=== PATIENT | female | born 1970 | race Caucasian/White ===

== ENCOUNTER 2019-03-04 11:23 | Emergency (ER) | payer OTHER ==
[~2019-03-04] VITALS: Ht 152.4 cm; Wt 59.0 kg
[2019-03-04 11:45] LABS: ABSOLUTE EOSINOPHILS 0.6 thou/uL (0.0-0.7); ABSOLUTE LYMPHOCYTES 3.2 thou/uL (0.8-5.3); ABSOLUTE NEUTROPHILS 6.1 thou/uL (1.6-8.1); BASOPHILS 0.3 %; EOSINOPHILS 5.6 %; HEMATOCRIT 46.2 % (37.0-47.0); HEMOGLOBIN 15.4 gm/dL (12.0-15.0); LYMPHOCYTES 29.2 %; MCH 31.2 pg (26.0-34.0); MCHC 33.3 g/dL (28.0-37.0); MCV 93.6 fL (80.0-100.0); MONOCYTES 9.5 %; MPV 8.5 fl. (7.2-11.1); NUCLEATED RBCS 0 /100WBC; PLATELET COUNT* 419 thou/uL (150-400); POLYS 55.4 %; RBC 4.93 mil/uL (4.20-5.00); RDW-CV 13.9 % (10.5-14.5)
[2019-03-04] MEDS ORDERED: CLARITIN10 MG PO (11:45)
[2019-03-04 11:53] LABS: PROTIME 9.9 Seconds (9.20-11.50)
[2019-03-04 12:03] LABS: ANION GAP 11 mmol/L (7-16); BUN 11 mg/dL (7-18); CALCIUM 8.8 mg/dL (8.5-10.1); CHLORIDE 102 mmol/L (98-107); CO2 27 mmol/L (21-32); CREATININE 0.9 mg/dL (0.6-1.3); GLUCOSE 102 mg/dL (70-99); POTASSIUM 3.8 mmol/L (3.5-5.1); SODIUM 140 mmol/L (136-145); TROPONIN-I LEVEL <0.06 ng/mL (<0.06)
[2019-03-04 12:04] LABS: ALBUMIN 3.7 g/dL (3.4-5.0); ALKALINE PHOSPHATASE 78 U/L (46-116); MAGNESIUM 2.1 mg/dL (1.8-2.4); NT-PRO BRAIN NAT PEPTIDE 57 pg/mL (<300); SGOT 19 U/L (15-37); SGPT 17 U/L (30-65); TOTAL BILIRUBIN 0.2 mg/dL (<0.1-1.0); TOTAL PROTEIN 8.7 g/dL (6.4-8.2)
[2019-03-04] MEDS ORDERED: NORVASC5 MG PO (12:50)
[2019-03-04 12:55] VITALS: BP 180/91
[2019-03-04 19:07] LABS: T3 UPTAKE 21 % (24-39)
--- NOTE | 2019-03-05 11:40 | EKG ---
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 : 1970 Requested By: Jackson Lilly Order Number: [id number] MD: Roberto Navarro Measurements Intervals [place] Rate: 196 P: 257 NM: 190 QRS: 93 QRSD: 78 T: 267 QT: 221 QTc: 400 Interpretive Statements Supraventricular tachycardia Borderline right axis deviation Repolarization abnormality, prob rate related Baseline wander in lead(s) II,III,aVL,aVF,V1,V3,V4,V5,V6 No previous ECG available for comparison Electronically Signed On 03-05-2019 11:40:14 CDT by Roberto Navarro [email or web address] <ELECTRONICALLY SIGNED> By: Roberto Navarro MD, [facility] 03/05/19 1140 1130 1130 Roberto Navarro MD, [facility] /EPI
--- NOTE | 2019-03-05 11:40 | EKG ---
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1970 Requested By: Jackson Lilly Order Number: [id number] MD: Roberto Navarro Measurements Intervals [place] Rate: 122 P: 75 OR: 150 QRS: 69 QRSD: 94 T: 42 QT: 296 QTc: 422 Interpretive Statements Sinus tachycardia Consider right atrial enlargement Consider left ventricular hypertrophy No previous ECG available for comparison Electronically Signed On 03-05-2019 11:40:22 CDT by Roberto Navarro [email or web address] <ELECTRONICALLY SIGNED> By: Roberto Navarro MD, [facility] 03/05/19 1140 1139 1139 Roberto Navarro MD, [facility] /EPI
== END 2019-03-04 12:56 | disposition home or self-care (01) ==
LOC: M.ERS 11:23
PROVIDERS: Emergency Medicine
DX: I47.1 Supraventricular tachycardia (principal); I10 Essential (primary) hypertension

== ENCOUNTER → 2021-03-30 | Outpatient (CLI) | payer OTHER ==
[~2021-03-30] MED LIST: CLARITIN10 MG PO; NORVASC5 MG PO
== END ==
LOC: M.CT 11:45
PROVIDERS: ATTEND Family Medicine
DX: N20.0 Calculus of kidney (principal)